=== PATIENT | male | born 1955 | race Caucasian/White ===

== ENCOUNTER 2016-12-14 14:37 | Emergency (ER) | payer OTHER ==
[2016-12-14 14:57] VITALS: BP 134/63; PULSE 80; RESP 18; TEMP 98.4; O2SAT 87
--- NOTE | 2016-12-14 15:26 | EDPHY ---
H & P Stated Complaint: right sided back pain started sunday, denies injury/TRAUMA OR URINARY C/O Time Seen by Provider: 12/14/16 15:00 HPI/ROS: Chief Complaint: right lower back pain HPI: 61-year-old male with a history of chronic back pain and degenerative disc disease turned to the left in the kitchen 4 days ago and had onset of pain in his right lower back. It is worse with movement, and pains with rest. He has no new numbness or weakness. No new urinary changes. Has a history of chronic back pain for she sees pain management of this over the periodically given steroid injections which will give him relief for 2-3 days. He does take Percocet, usually once a day. He got this filled yesterday but they have not improving. Has not been taking any other new medications. Is no fevers or chills. He is ambulating with discomfort but is able to ambulate. At rest his pain is a 3/10. With walking his pain 9/10. ROS: 10 point Review of Systems is negative except as noted in the HPI. PMH: Diabetes, sleep apnea, depression, chronic back pain Social History: No smoking, no alcohol, no recreational drug use Family History: non-contributory Physical Exam: Gen: Awake, Alert, No Distress, morbidly obese HEENT: Nose: no rhinorrhea Eyes: PERRLA, EOMI Mouth: Moist mucosa Neck: Supple, no JVD Chest: nontender, lungs clear to auscultation Heart: S1, S2 normal, no murmur Abd: Soft, non-tender, no guarding Back: no CVA tenderness, no midline tenderness he has right sided paraspinal palpable muscle spasm with tenderness Ext: no edema, non-tender Skin: no rash Neuro: CN II-XII intact, Sensation grossly intact, Strength 5/5 in bilateral upper and lower extremities, he has 2+ patellar reflexes, sensations intact in all dermatomes - Medical/Surgical History Hx Asthma: No Hx Chronic Respiratory Disease: No Hx Diabetes: Yes Hx Cardiac Disease: No Hx Renal Disease: No Hx Cirrhosis: No Hx Alcoholism: No Hx HIV/AIDS: No Hx Splenectomy or Spleen Trauma: No Other PMH: DIABETES,DEPRESSION,HIGH CHOLESTEROL, CHRONIC PAIN PAIN, SPINAL STENOSIS, SCULIOSIS, HERNIATED DISCS, SLEEP APNEA, KNEE SURG, ARTHRITIS. OXYGEN AT NIGHT 2 LTRS - Social History Smoking Status: Never smoked Constitutional: Initial Vital Signs Temperature (C) 36.9 C 12/14/16 14:52 Heart Rate 80 12/14/16 14:52 Respiratory Rate 18 12/14/16 14:52 Blood Pressure 134/63 H 12/14/16 14:52 O2 Sat (%) 87 L 12/14/16 14:52 O2 Delivery Mode Room Air Allergies/Adverse Reactions: No Known Allergies Allergy (Unverified 12/14/16 14:52) Home Medications: Medication Instructions Recorded Hyoscyamine Sulfate 08/10/09 Nardil 08/10/09 Melba Allergy 01/05/14 Donepezil HCl 01/05/14 Fish Oil 01/05/14 LIBRIUM 01/05/14 Methocarbamol [Robaxin 750 mg (RX)] 1 - 2 tab PO QID PRN #40 tab 01/05/14 Oracea 01/05/14 Phenelzine Sulfate 01/05/14 Pioglitazone HCl 01/05/14 Simvastatin 01/05/14 Vitamin C 01/05/14 Medical Decision Making ED Course/Re-evaluation: 5-year-old male with muscle spasm on top of chronic back pain. He has no neurologic red flags suggestive of acute neurosurgical emergency such as cauda equina syndrome or epidural abscess. He is neurologically intact. I have recommended that he increase his usual Percocet does p.o. to continue his Celebrex. I have also will apply a Lidoderm patch. He will follow up with primary care physician in 2-3 days to assess his pain. He has also been advised to follow up with pain management doctors at [facility]. Departure - Departure Disposition: Home, Routine, Self-Care Clinical Impression: Back pain Condition: Good Instructions: Lower Back Exercises (ED), Low Back Strain (ED), Chronic Back Pain (ED) Additional Instructions: You may increase her Percocet to 2 tablets twice a day as needed for pain. Apply a Lidoderm patch once a day to the affected area. Follow up with primary care physician in 2-3 days for re-evaluation. Follow-up with pain management doctors in 3-4 days for re-evaluation. Referrals: Cordelia Locke MD [Primary Care Provider] - As per Instructions
[2016-12-14] MEDS ORDERED: PATCH REMOVAL 1 EA PATCH TD SCH (21:00)
[2016-12-15] MEDS ORDERED: LIDOCAINE 5% 1 EA PATCH TD SCH (09:00)
== END 2016-12-14 15:46 | disposition home or self-care (01) ==
LOC: CED 14:37
DX: M54.5 Low back pain (principal); E11.9 Type 2 diabetes mellitus without complications

== ENCOUNTER 2017-01-14 15:44 | Observation (INO) | payer OTHER ==
--- NOTE | 2017-01-14 16:16 | EDPHY ---
H & P Stated Complaint: Medical eval - altered mental status Time Seen by Provider: 01/14/17 15:49 HPI/ROS: This pt. presented to the emergency department with confusion, concerned that his was trying to hurt him, he walked here from their nearbye home. After conversation with police (contacted due to concern of potential domestic dispute ) and , the history is that pt's normally visits her family on Sundays and shortly after arriving at her mother's home, she received a call from this patient, her asking why she left, angry and was concerned that she had poisoned him. When she returned to check on him he was holding scissors and stretching or not to get any closer. She was startled and through the phone at the patient and he caught the phone. The patient then called his daughter and was apparently confused when speaking to the daughter as well claiming that his was trying to poison him. The patient then left the home and walked to our emergency department for evaluation. The patient's explains that the patient has a history of chronic back pain and reports the recent visit with his LEAD [employer]ON DEVELOPER at [facility] who started him on buprenorphine patch on Sunday. His reports that he started to feel confused during the week while this patch with increased fatigue. By they called the LEAD PYTHON DEVELOPER that prescribe the med, & she instructed him to stop using the patch. Today, his reports they could not find the patches. Given his confusion, his has the impression that he took too much medication. The patient does not think he did. The patient reports that he has chronic hypoxia that has been worked up without any answer for the cause of the hypoxia which he states is typically at 88% on room air or so. The patient initially did not want to check into the emergency department and police were called to evaluate the patient for potential ride home. Concerned about the level of his parent confusion he has checked into the emergency department. Per the patient's , he has had an episode of anger after steroid injection for his back pain in the past, but no paranoia or psychotic sx's with that episode. No other previous episodes of similar behavior and down to this level of apparent confusion. ROS: No high fevers or chills no other constitutional symptoms HEENT: No nasal congestion. No sore throat. No ear symptoms Pulmonary: He reports occasional dry cough this morning. He has not noticed any dyspnea. No wheezing. No pleuritic pain. Cardiovascular: No chest pain. No heart palpitations. No lightheadedness. The patient does complain of leg pain in the right calf more than left intermittently over recent weeks more so over the past week. Integumentary: No diaphoresis. No rash. GI: He reports loose stools about 6 episodes of diarrhea a day over the past few days. He states this is watery stool. He denies any abdominal pain. : No urinary symptoms Neuro: No headache. No focal numbness tingling weakness Psychiatric: New onset of paranoia today. Complete review of symptoms is otherwise negative. Source: Patient, Family, Police Exam Limitations: Clinical condition (This patient is confused. History Augmentin by patient's and please.) - Personal History Current Tetanus/Diphtheria Vaccine: Unsure Current Tetanus Diphtheria and Acellular Pertussis (TDAP): Unsure - Medical/Surgical History Hx Asthma: No Hx Chronic Respiratory Disease: No Hx Diabetes: Yes Hx Cardiac Disease: No Hx Renal Disease: No Hx Cirrhosis: No Hx Alcoholism: No Hx HIV/AIDS: No Hx Splenectomy or Spleen Trauma: No Other PMH: DIABETES,DEPRESSION,HIGH CHOLESTEROL, CHRONIC PAIN PAIN, SPINAL STENOSIS, SCULIOSIS, HERNIATED DISCS, SLEEP APNEA, KNEE SURG, ARTHRITIS. OXYGEN AT NIGHT 2 LTRS - Family History Significant Family History: No pertinent family hx - Social History Smoking Status: Never smoked Alcohol Use: None Drug Use: None - Physical Exam Exam: Physical exam: Vital signs are notable for hypoxia to 78-83% on room air corrects to the mid 90s on 2 L nasal cannula, mild tachycardia to 104 General: Patient is in no acute distress. HEENT: Is no external evidence of trauma on exam. Nose atraumatic. Ears: Clear bilaterally with no hemotympanum. Oropharynx: No dental trauma or malocclusion. No intraoral lacerations. Eyes: Pupils are equal and reactive to light. Extraocular motions are intact. Optic fundi: Clear with no papilledema or hemorrhage. Neck: Trachea is midline with no stridor. The patient has no midline neck tenderness and retains a full range of motion without increase in pain. Lungs: Rales at the left base. Otherwise clear to auscultation. Cardiac: Regular rate and rhythm no murmur gallop or rub. Abdomen: Soft nontender no organomegaly Neuro: GCS of 14--1 for confusion Cranial nerves II through XII intact. No focal sensory or motor deficits are appreciated. Initial differential diagnosis: Pneumonia, PE other pneumonic cause of hypoxia contributing to confusion, drug related delirium from medications, overdose, intoxication, subdural hematoma or other intracranial pathology, mi, primary psychiatric, metabolic disarray Constitutional: Initial Vital Signs Temperature (C) 36.9 C 01/14/17 15:55 Heart Rate 104 H 01/14/17 15:55 Respiratory Rate 18 01/14/17 15:55 Blood Pressure 168/68 H 01/14/17 15:55 O2 Sat (%) 83 L 01/14/17 15:55 O2 Delivery Mode Room Air O2 (L/minute) 3 Allergies/Adverse Reactions: No Known Allergies Allergy (Unverified 12/14/16 14:52) Home Medications: Medication Instructions Recorded Hyoscyamine Sulfate 08/10/09 Nardil 08/10/09 Melba Allergy 01/05/14 Donepezil HCl 01/05/14 Fish Oil 01/05/14 LIBRIUM 01/05/14 Methocarbamol [Robaxin 750 mg (RX)] 1 - 2 tab PO QID PRN #40 tab 01/05/14 Oracea 01/05/14 Phenelzine Sulfate 01/05/14 Pioglitazone HCl 01/05/14 Simvastatin 01/05/14 Vitamin C 01/05/14 Medical Decision Making - Diagnostics EKG Interpretation: 12 lead EKG performed at 4:10 p.m.-indication confusion evaluate for dysrhythmia , conduction abnormalities or other Sinus rhythm at 92 Intervals: P R of 164, QTC of 406, QTC of 328, QRS of 84 [place]: P of 80, QRS of 8, T of 25 ST segments: Patient has border line R-wave progression anteriorly and morphologies notable for S1, Q 3 T3-potential right heart strain. Overall assessment sinus rhythm with borderline R-wave progression anteriorly and potential prior infarct right heart strain inferiorly Imaging Results: Imaging Impressions Chest X-Ray 01/14/17 16:05 Impression: Favor bibasilar atelectasis and airways disease rather than pneumonia. Head CT 01/14/17 16:09 Impression: 1. Negative. No subdural hematoma or acute intracranial process. 2. Old lacunar infarction involving the right external capsule. No evidence of acute ischemia. Findings discussed with emergency department physician, Chadd Graves MD on January 14, 2017 at 1721 hours. Chest/Thorax CTA 01/14/17 17:40 Impression: 1. No evidence of thrombopulmonary embolic disease. 2. Bibasilar linear atelectasis. No edema or consolidation to suggest pneumonia. 3. Fatty replaced pancreas. Query pancreatic insufficiency. Findings discussed with emergency department physician, Chadd Graves MD on January 14, 2017 at 1848 hours. Imaging: Discussed imaging studies w/ yardage caller Radiologist ED Course/Re-evaluation: I spoke with the patient's the bereavement room regarding the recent history and then brought her into the patient's room where the patient gained some insight into his current illness and expressed remorse for his earlier behavior (paranoia around his ). He initially declined CT scan was angry that I wanted to proceed with workup prior to his 's arrival. However, after conversation with his he understands the need to pursue the cause of his mental status changes or characterized by mildly agitated delirium. Given that he is on in MAOI inhibitor, started buprenorphine recently as well as long-acting benzodiazepine, I suspect this is a combination these medications that may be causing some depression of his respiratory drive, subsequent hypoxia and confusion. Review of his labs reveals elevated D-dimer. No other remarkable findings on CBC and CMP. Troponin is normal. The patient had mentions some leg pain recently. Given hypoxia, tachycardia, back pain positive D-dimer, patient warrants CT angio chest to evaluate for potential PE. I explained this to the patient he is agreeable to proceeding. Patient's CT angio chest is negative for PE showing only atelectasis at the bases noted on chest x-ray. I spoke with Dr. Nuno Rick-radiologist regarding this result. Patient with hypoxia and confusion that is likely secondary to medication effects of a combination of his opiate patch and benzodiazepine. He has been on Librium twice a day for many years to treat anxiety per his . Given has ongoing confusion hypoxia she warrants admission for further observation and treatment. Patient is agreeable to this with his present. Will plan to admit to [facility] The patient is cooperative, and pleasant since shortly after his arrived. Explain all the test results and plan for admission. He is comfortable with this plan. Will transport by S provide supplemental O2 and monitoring enroute. I spoke with Dr. Estrada, hospitalist at [facility] accepts the patient for admission to a medical bed with O2 sat monitoring - Data Points Laboratory Results: Laboratory Results 01/14/17 16:05 01/14/17 16:05 01/14/17 01/14/17 01/14/17 17:43 17:43 16:10 WBC RBC Hgb Hct MCV MCH MCHC RDW Plt Count MPV Neut % (Auto) Lymph % (Auto) [place] % (Auto) Eos % (Auto) Baso % (Auto) Nucleat RBC Rel Count Absolute Neuts (auto) Absolute Lymphs (auto) Absolute Monos (auto) Absolute Eos (auto) Absolute Basos (auto) Absolute Nucleated RBC Immature Gran % Immature Gran # PT INR APTT D-Dimer Sodium Potassium Chloride Carbon Dioxide Anion Gap BUN Creatinine Estimated GFR Glucose POC Glucose 129 mg/dL H mg/dL (70-100) Calcium Total Bilirubin AST ALT Alkaline Phosphatase Troponin I Total Protein Albumin TSH Urine Color YELLOW Urine Appearance CLEAR Urine pH 7.0 (5.0-7.5) Ur Specific [place] 1.010 (1.002-1.030) Urine Protein NEGATIVE (NEGATIVE) Urine Ketones NEGATIVE (NEGATIVE) Urine Blood NEGATIVE (NEGATIVE) Urine Nitrate NEGATIVE (NEGATIVE) Urine Bilirubin NEGATIVE (NEGATIVE) Urine Urobilinogen 0.2 EU EU (0.2-1.0) Ur Leukocyte Esterase NEGATIVE (NEGATIVE) Urine Glucose NEGATIVE (NEGATIVE) Urine Opiates Screen NEGATIVE (NEGATIVE) Urine Barbiturates NEGATIVE (NEGATIVE) Ur Phencyclidine Scrn NEGATIVE (NEGATIVE) Ur Amphetamine Screen NEGATIVE (NEGATIVE) U Benzodiazepines Scrn NON-NEGATIVE H (NEGATIVE) Urine Cocaine Screen NEGATIVE (NEGATIVE) U Marijuana (THC) Screen NEGATIVE (NEGATIVE) Ethyl Alcohol 01/14/17 01/14/17 01/14/17 16:05 16:05 16:05 WBC RBC Hgb Hct MCV MCH MCHC RDW Plt Count MPV Neut % (Auto) Lymph % (Auto) [place] % (Auto) Eos % (Auto) Baso % (Auto) Nucleat RBC Rel Count Absolute Neuts (auto) Absolute Lymphs (auto) Absolute Monos (auto) Absolute Eos (auto) Absolute Basos (auto) Absolute Nucleated RBC Immature Gran % Immature Gran # PT 14.1 SEC SEC (12.0-15.0) INR 1.12 (0.83-1.16) APTT 33.3 SEC SEC (23.0-38.0) D-Dimer 0.76 ug/mLFEU H ug/mLFEU (0.00-0.50) Sodium 142 mEq/L mEq/L (134-144) Potassium 5.2 mEq/L mEq/L (3.5-5.2) Chloride 103 mEq/L mEq/L (97-110) Carbon Dioxide 27 mEq/l mEq/l (22-31) Anion Gap 12 mEq/L mEq/L (8-16) BUN 25 mg/dL H mg/dL (7-23) Creatinine 0.6 mg/dL L mg/dL (0.7-1.3) Estimated GFR > 60 Glucose 126 mg/dL H mg/dL (70-100) POC Glucose Calcium 9.3 mg/dL mg/dL (8.5-10.4) Total Bilirubin 0.7 mg/dL mg/dL (0.1-1.4) AST 23 IU/L IU/L (17-59) ALT 31 IU/L IU/L (21-72) Alkaline Phosphatase 97 IU/L IU/L (38-126) Troponin I < 0.012 ng/mL ng/mL (0.000-0.034) Total Protein 6.1 g/dL L g/dL (6.3-8.2) Albumin 3.6 g/dL g/dL (3.5-5.0) TSH 1.300 uIU/mL uIU/mL (0.465-4.680) Urine Color Urine Appearance Urine pH Ur Specific [place] Urine Protein Urine Ketones Urine Blood Urine Nitrate Urine Bilirubin Urine Urobilinogen Ur Leukocyte Esterase Urine Glucose Urine Opiates Screen Urine Barbiturates Ur Phencyclidine Scrn Ur Amphetamine Screen U Benzodiazepines Scrn Urine Cocaine Screen U Marijuana (THC) Screen Ethyl Alcohol < 10 mg/dL mg/dL (0-10) 01/14/17 16:05 WBC 6.26 10^3/uL 10^3/uL (3.80-9.50) RBC 4.23 10^6/uL L 10^6/uL (4.40-6.38) Hgb 12.6 g/dL L g/dL (13.7-17.5) Hct 40.6 % % (40.0-51.0) MCV 96.0 fL fL (81.5-99.8) MCH 29.8 pg pg (27.9-34.1) MCHC 31.0 g/dL L g/dL (32.4-36.7) RDW 14.5 % % (11.5-15.2) Plt Count 155 10^3/uL 10^3/uL (150-400) MPV 10.0 fL fL (8.7-11.7) Neut % (Auto) 70.0 % % (39.3-74.2) Lymph % (Auto) 16.1 % % (15.0-45.0) [place] % (Auto) 7.0 % % (4.5-13.0) Eos % (Auto) 5.9 % % (0.6-7.6) Baso % (Auto) 0.5 % % (0.3-1.7) Nucleat RBC Rel Count 0.0 % % (0.0-0.2) Absolute Neuts (auto) 4.38 10^3/uL 10^3/uL (1.70-6.50) Absolute Lymphs (auto) 1.01 10^3/uL 10^3/uL (1.00-3.00) Absolute Monos (auto) 0.44 10^3/uL 10^3/uL (0.30-0.80) Absolute Eos (auto) 0.37 10^3/uL 10^3/uL (0.03-0.40) Absolute Basos (auto) 0.03 10^3/uL 10^3/uL (0.02-0.10) Absolute Nucleated RBC 0.00 10^3/uL 10^3/uL (0-0.01) Immature Gran % 0.5 % % (0.0-1.1) Immature Gran # 0.03 10^3/uL 10^3/uL (0.00-0.10) PT INR APTT D-Dimer Sodium Potassium Chloride Carbon Dioxide Anion Gap BUN Creatinine Estimated GFR Glucose POC Glucose Calcium Total Bilirubin AST ALT Alkaline Phosphatase Troponin I Total Protein Albumin TSH Urine Color Urine Appearance Urine pH Ur Specific [place] Urine Protein Urine Ketones Urine Blood Urine Nitrate Urine Bilirubin Urine Urobilinogen Ur Leukocyte Esterase Urine Glucose Urine Opiates Screen Urine Barbiturates Ur Phencyclidine Scrn Ur Amphetamine Screen U Benzodiazepines Scrn Urine Cocaine Screen U Marijuana (THC) Screen Ethyl Alcohol Medications Given: Discontinued Medications Sodium Chloride (Ns) 1,000 mls @ 0 mls/hr IV EDNOW ONE; Wide Open PRN Reason: Protocol Stop: 01/14/17 16:52 Last Admin: 01/14/17 17:11 Dose: 1,000 mls Point of Care Test Results: 01/14/17 16:10 POC Glucose 129 H Departure - Departure Disposition: [facility] Inpatient Acute Clinical Impression: Delirium due to known physiological condition, Hypoxia Condition: Fair
[2017-01-14 16:25] LABS: % IMMATURE GRANULYOCYTES 0.5 % (0.0-1.1); ABSOLUTE IMMATURE GRANULOCYTES 0.03 10^3/uL (0.00-0.10); ADD DIFF? NO; ADD MORPH? NO; ADD SCAN? NO; ATYPICAL LYMPHOCYTE FLAG 0 (0-99); FRAGMENT RBC FLAG 0 (0-99); HEMATOCRIT 40.6 % (40.0-51.0); HEMOGLOBIN 12.6 g/dL (13.7-17.5); LEFT SHIFT FLG 0 (0-99); LIPEMIA HEMOLYSIS FLAG 80 (0-99); MEAN CELL HEMOGLOBIN 29.8 pg (27.9-34.1); PLATELET CLUMPS FLAG 10 (0-99); PLATELET COUNT 155 10^3/uL (150-400); RED BLOOD CELL COUNT 4.23 10^6/uL (4.40-6.38); RED CELL DISTRIBUTION WIDTH 14.5 % (11.5-15.2)
[2017-01-14 16:40] LABS: ALANINE AMINOTRANSFERASE 31 IU/L (21-72); ALBUMIN 3.6 g/dL (3.5-5.0); ALKALINE PHOSPHATASE 97 IU/L (38-126); ANION GAP 12 mEq/L (8-16); ASPARTATE AMINOTRANSFERASE 23 IU/L (17-59); BILIRUBIN,TOTAL 0.7 mg/dL (0.1-1.4); CALCIUM 9.3 mg/dL (8.5-10.4); CARBON DIOXIDE 27 mEq/l (22-31); CHLORIDE 103 mEq/L (97-110); CREATININE 0.6 mg/dL (0.7-1.3); GLOMERULAR FILTRATION RATE > 60; GLUCOSE 126 mg/dL (70-100); POTASSIUM 5.2 mEq/L (3.5-5.2); SODIUM 142 mEq/L (134-144); TOTAL PROTEIN 6.1 g/dL (6.3-8.2)
[2017-01-14] MEDS ORDERED: NS 1,000 ML IV ONE (16:51)
[2017-01-14 16:54] LABS: TROPONIN I < 0.012 ng/mL (0.000-0.034)
[2017-01-14 17:39] LABS: ETHANOL SERUM < 10 mg/dL (0-10)
--- NOTE | 2017-01-14 17:49 | CPEKG ---
Heart Rate: 92 RR Interval: 652 P-R Interval: 164 QRSD Interval: 84 QT Interval: 328 QTC Interval: 406 P Gate: 18 QRS Gate: 8 T Wave Gate: 25 EKG Severity - ABNORMAL ECG - EKG Impression: SINUS RHYTHM EKG Impression: PROBABLE INFERIOR INFARCT, AGE INDETERMINATE EKG Impression: BORDERLINE R WAVE PROGRESSION, ANTERIOR LEADS Electronically Signed By: Chadd Graves 14-Jan-2017 18:32:55
[2017-01-14 17:54] LABS: INR 1.12 (0.83-1.16); PROTIME(PATIENT) 14.1 SEC (12.0-15.0)
[2017-01-14 17:55] LABS: APTT 33.3 SEC (23.0-38.0)
[2017-01-14] MEDS ORDERED: IOPAMIDOL (ISOVUE 370) 100 ML BTL IV ONE (18:01)
[2017-01-14 18:31] LABS: COLOR YELLOW; LEUKOCYTE ESTERASE,URINE NEGATIVE (NEGATIVE); NITRITE,URINE NEGATIVE (NEGATIVE)
[2017-01-14] MEDS ORDERED: ONDANSETRON DISINTEGRATING 4 MG TAB PO PRN (23:01)
[2017-01-14] MEDS ORDERED: HALOPERIDOL 2 MG TAB PO PRN (23:01)
[2017-01-14] MEDS ORDERED: ONDANSETRON 4 MG/2 ML VIAL IVP PRN (23:01)
[2017-01-14] MEDS ORDERED: ACETAMINOPHEN 325 MG TAB PO PRN (23:01)
[2017-01-14] MEDS ORDERED: HALOPERIDOL LACT 5 MG/ML INJ IM PRN (23:01)
[2017-01-14] MEDS ORDERED: LIDOCAINE 5% 1 EA PATCH TD PRN (23:08)
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
[2017-01-15] MEDS ORDERED: D50W 25 GM/50 ML SYR IVP PRN (00:05)
[2017-01-15 05:18] LABS: CHOLESTEROL 122 mg/dL (140-220); CHOLESTEROL/HDL RATIO 4.07 RATIO (1.00-4.97); HIGH DENSITY LIPOPROTEIN 30 mg/dL (40-65); LOW DENSITY LIPOPROTEIN 78 mg/dL (80-100); NON-HIGH DENSITY LIPOPROTEIN 92 mg/dL (90-129); TRIGLYCERIDE 74 mg/dL (40-150); VERY LOW DENSITY LIPOPROTEINS 14 mg/dL (8-25)
[2017-01-15 06:24] LABS: FOLATE SERUM > 20.00 ng/mL (2.80 - >20.00)
[2017-01-15] MEDS: INSULIN LISPRO 100 UNIT/ML SC SCH ×3 (08:28→18:26)
[2017-01-15] MEDS: ASPIRIN 81 MG CHEWABLE TAB PO SCH (08:34)
--- NOTE | 2017-01-15 09:28 | HOSPPROG ---
Hospitalist Progress Note Assessment/Plan: #Acute toxic encephalopathy: sxs stated with initiation of buperenorphine patch 5mg in combo with Nardil, Perocet and Librium. No metabolic derangements. Eval for infection. UA neg. CTA neg for clot, PNA. Check ABG for hypercarbia, flu with new cough - #Chronic back pain: followed by Ophelia Rajan PSYCHIATRIC TECHNICIAN ASSISTANT at [facility] #JENNIE: Bi-pap at home; to bring in #Acute on chronic hypoxemic resp failure: no clot or PNA. Atelectasis. Check flu. Incentive spirometry DM: cont home meds #Depression/anxiety: has been on Nardil for many years. Will restart this medication, hold Librium to allow him to mental status to clear. This will be need to be restarted since chronic. Have started CIWa/ativan in case of withdrawal. #Chronic back pain: hold Percocet. IV Toradol while here. On H2-sergo #Diet: regular DVT ppx: Lovenox Disp: will continue observation status since allowing meds and mental status to clear Time spent on visit: 45 min bedside with pt, counseling on tx plan, reviewing meds Subjective: doesn't understand why he is here in hosp Objective: Vital Signs Temp Pulse Resp BP Pulse Ox 36.9 C 75 16 135/68 H 93 01/15/17 08:00 01/15/17 08:00 01/15/17 08:00 01/15/17 08:00 01/15/17 08:00 01/14/17 01/15/17 01/16/17 05:59 05:59 05:59 Intake Total 1010 Balance 1010 PT 14.1 SEC (12.0-15.0) 01/14/17 16:05 INR 1.12 (0.83-1.16) 01/14/17 16:05 - Physical Exam Constitutional: obese Ears, Nose, Mouth, Throat: moist mucous membranes Cardiovascular: regular rate and rhythym (distant) Respiratory: no respiratory distress, no rales or rhonchi Gastrointestinal: normoactive bowel sounds, soft, non-tender abdomen Genitourinary: no bladder fullness Skin: warm Musculoskeletal: full muscle strength Neurologic: CN II-XII Intact, other (alert to year and hospital only) Psychiatric: encephalopathic, anxious, flat affect ICD10 Worksheet Patient Problems: Problems Problem Status Onset Delirium due to known physiological condition Acute Hypoxia Acute
[2017-01-15 09:47] LABS: BASE EXCESS 0.7 mEq/L (-2.5-2.5); BICARBONATE 26 mEq/L (22-26); MEASURED OXYGEN SATURATION 92 % (92-95); PCO2 49 mmHg (34-38); PO2 65 mmHg (65-75); TCO2 28 mEq/L (23-27)
[2017-01-15] MEDS ORDERED: NON-FORMULARY NEW DRUG (Doxycycline Monohydrate [Oracea] 40 MG) PO SCH (11:30)
[2017-01-15] MEDS ORDERED: [UNRECOGNIZED DRUG - OTHER] PO SCH (11:30)
[2017-01-15] MEDS ORDERED: LORazepam 1 MG TAB PO PRN (14:00)
[2017-01-15] MEDS: KETOROLAC 15 MG/1 ML SDV IVP SCH ×3 (15:05→23:49)
[2017-01-15] MEDS: ASCORBIC ACID 500 MG TAB PO SCH (15:05)
[2017-01-15] MEDS: FAMOTIDINE 20 MG TAB PO SCH (15:05)
[2017-01-15] MEDS: OMEGA-3 FATTY ACIDS 1,000 MG CAP PO SCH (15:05)
--- NOTE | 2017-01-15 16:23 | ASMTCMCOM ---
CM Note CM Note Notes: Pt is a 61 y/o man admitted with confusion and agitation. Pt has a hx of chronic back pain, diabetets, depression and sleep apnea. Therapies ordered and awaiting recommendations. CM to follow. Date Signed: 01/15/2017 04:22 PM Electronically Signed By:NEO Schaefer
[2017-01-15] MEDS ORDERED: PHENELZINE SULFATE PO SCH ×5 (18:00→21:00)
[2017-01-15] MEDS ORDERED: NON-FORMULARY NEW DRUG (Simvastatin [Simvastatin] 40 MG) PO SCH (21:00)
[2017-01-15] MEDS ORDERED: PHENELZINE 15 MG PO SCH (21:00)
[2017-01-15] MEDS ORDERED: ATORVASTATIN CALCIUM 20 MG TAB PO SCH (21:00)
[2017-01-15] MEDS ORDERED: PATCH REMOVAL 1 EA PATCH TD SCH (21:00)
[2017-01-16 04:49] LABS: % IMMATURE GRANULYOCYTES 0.3 % (0.0-1.1); ABSOLUTE IMMATURE GRANULOCYTES 0.02 10^3/uL (0.00-0.10); ADD DIFF? NO; ADD MORPH? NO; ADD SCAN? NO; ATYPICAL LYMPHOCYTE FLAG 10 (0-99); FRAGMENT RBC FLAG 0 (0-99); HEMOGLOBIN 12.2 g/dL (13.7-17.5); LEFT SHIFT FLG 0 (0-99); LIPEMIA HEMOLYSIS FLAG 80 (0-99); MEAN CELL HEMOGLOBIN 29.5 pg (27.9-34.1); MEAN CELL HEMOGLOBIN CONCENTR. 31.3 g/dL (32.4-36.7); MEAN CELL VOLUME 94.4 fL (81.5-99.8); PLATELET CLUMPS FLAG 0 (0-99); PLATELET COUNT 133 10^3/uL (150-400); RED BLOOD CELL COUNT 4.13 10^6/uL (4.40-6.38); RED CELL DISTRIBUTION WIDTH 14.1 % (11.5-15.2)
[2017-01-16 04:58] LABS: ANION GAP 9 mEq/L (8-16); CALCIUM 9.5 mg/dL (8.5-10.4); CARBON DIOXIDE 25 mEq/l (22-31); CHLORIDE 106 mEq/L (97-110); CREATININE 0.7 mg/dL (0.7-1.3); GLOMERULAR FILTRATION RATE > 60; GLUCOSE 98 mg/dL (70-100); MAGNESIUM 1.8 mg/dL (1.6-2.3); POTASSIUM 4.4 mEq/L (3.5-5.2); SODIUM 140 mEq/L (134-144)
[2017-01-16] MEDS: KETOROLAC 15 MG/1 ML SDV IVP SCH ×2 (05:31→12:25)
[2017-01-16] MEDS: INSULIN LISPRO 100 UNIT/ML SC SCH ×2 (08:20→15:18)
[2017-01-16] MEDS: ASCORBIC ACID 500 MG TAB PO SCH (08:24)
[2017-01-16] MEDS: FAMOTIDINE 20 MG TAB PO SCH (08:25)
[2017-01-16] MEDS: OMEGA-3 FATTY ACIDS 1,000 MG CAP PO SCH (08:25)
[2017-01-16] MEDS: ASPIRIN 81 MG CHEWABLE TAB PO SCH (08:25)
[2017-01-16] MEDS ORDERED: PIOGLITAZONE HCL 15 MG TAB PO SCH (09:00)
[2017-01-16] MEDS ORDERED: [UNRECOGNIZED DRUG - OTHER] PO SCH (09:00)
[2017-01-16] MEDS ORDERED: NON-FORMULARY NEW DRUG (Pioglitazone Hcl [Actos] 45 MG) PO SCH (09:00)
[2017-01-16] MEDS ORDERED: PHENELZINE SULFATE 15 MG PO SCH ×4 (09:00)
[2017-01-16] MEDS ORDERED: HYOSCYAMINE SULFATE 0.375 MG TAB.SR PO SCH (09:00)
[2017-01-16] MEDS ORDERED: DOXYCYCLINE MONOHYDRATE 40 MG PO SCH (09:00)
--- NOTE | 2017-01-16 14:04 | HOSPPROG ---
Hospitalist Progress Note Assessment/Plan: #Acute toxic encephalopathy: sxs stated with initiation of buperenorphine patch 5mg in combo with Nardil, Perocet and Librium. No metabolic derangements. Eval for infection. UA neg. CTA neg for clot, PNA. abg normal PT eval today home if cleared #Chronic back pain: followed by Ophelia Rajan REGISTERED NURSE FIRST ASSISTANT at [facility] #JENNIE: Bi-pap at home; to bring in #Acute on chronic hypoxemic resp failure: no clot or PNA. Atelectasis. Check flu. Incentive spirometry DM: cont home meds #Depression/anxiety: has been on Nardil for many years. Will restart this medication, hold Librium to allow him to mental status to clear. This will be need to be restarted since chronic. Have started CIWa/ativan in case of withdrawal. #Chronic back pain: hold Percocet. IV Toradol while here. On H2-sergo #Diet: regular DVT ppx: Lovenox Disp: will continue observation status since allowing meds and mental status to clear Subjective: more clear today, approaching baseline. discussed w pt and family Objective: Vital Signs Temp Pulse Resp BP Pulse Ox 36.7 C 75 18 140/71 H 71 L 01/16/17 12:36 01/16/17 12:36 01/16/17 12:36 01/16/17 12:36 01/16/17 12:36 Laboratory Results 01/16/17 04:20 01/16/17 04:20 01/15/17 01/16/17 01/17/17 05:59 05:59 05:59 Intake Total 1010 120 Balance 1010 120 PT 14.1 SEC (12.0-15.0) 01/14/17 16:05 INR 1.12 (0.83-1.16) 01/14/17 16:05 - Physical Exam Constitutional: no apparent distress, appears nourished Eyes: PERRL, anicteric sclera Ears, Nose, Mouth, Throat: moist mucous membranes, hearing normal Cardiovascular: regular rate and rhythym, no murmur, rub, or gallop Respiratory: no respiratory distress Gastrointestinal: normoactive bowel sounds, soft, non-tender abdomen Genitourinary: no bladder fullness, No hernandez in urethra Skin: warm, normal color Musculoskeletal: full muscle strength Neurologic: AAOx3 ICD10 Worksheet Patient Problems: Problems Problem Status Onset Delirium due to known physiological condition Acute Hypoxia Acute
--- NOTE | 2017-01-16 15:11 | ASMTCMCOM ---
CM Note CM Note Notes: Pt is being discharged home w/ supportive today. Pt has been cleared by PT to be independent. will be taking the next 8 days off from work to care for pt. Pt will be using O2 during the day. CM available for changes. Date Signed: 01/16/2017 03:11 PM Electronically Signed By:NEO Schaefer
[2017-01-16 15:47] VITALS: BP 121/63; PULSE 72; RESP 22; TEMP 97.9; O2SAT 96
[2017-01-16] MEDS ORDERED: PHENELZINE 15 MG PO SCH (18:00)
[2017-01-16] MEDS ORDERED: PHENELZINE SULFATE PO SCH (18:00)
--- NOTE | 2017-01-16 22:51 | GDS ---
[f rep st] DISCHARGE SUMMARY DISCHARGE DIAGNOSES: 1. Acute encephalopathy secondary to buprenorphine prescription which is new and subsequently discon tinued. 2. History of sleep apnea. 3. Hypoxemia secondary to sleep apnea and poor respiratory mechanics. 4. Diabetes. 5. Low back pain. 6. Anxiety. HOSPITAL COURSE: Please see admission History and Physical by Dr. Cassandra Martínez. The patient presen ora on the afternoon and evening of the with agitation and encephalopathy in the context of rece ntly having started buprenorphine. It sounds like he was having some intolerance to that prior too. They removed it, but since it was a transdermal medication, the symptoms continued to escalate. The patient had improved status over a couple of days, and today when I saw him for my first time, the f ghislainey thought he was pretty near his baseline. He was seen by PT, who felt he was safe for discharge . He was discharged home. Medicines are unchanged, except for discontinued buprenorphine. /[id number]/MODL
[2017-01-18] MEDS ORDERED: THIAMINE HCL 100 MG TAB PO SCH (09:00)
== END 2017-01-16 16:24 | disposition home or self-care (01) ==
LOC: CED 15:44 → CEDHOLD 19:03 → INTOOBSV 19:03 → F3E 21:21
PROVIDERS: ADMIT Internal Medicine; ATTEND Internal Medicine
DX: G92 Toxic encephalopathy (principal); T40.4X5A Adverse effect of other synthetic narcotics, initial encounter; G47.36 Sleep related hypoventilation in conditions classified elsewhere; E11.9 Type 2 diabetes mellitus without complications; M54.5 Low back pain; F41.9 Anxiety disorder, unspecified
CPT/HCPCS: 70450; 71020; 71275; 92507; 92523; 93005; 96360; 97161; 97166; 99285; G0378; 80053-PO; 80307-PO; 81003-PO; 82607-90; 82947-QW; 84443-PO; 84484-PO; 85025-PO; 85378-PO; 85610-PO; 85730-PO; G0480; J1815; J1885; Q9967

== ENCOUNTER 2017-08-21 09:22 | Emergency (ER) | payer OTHER ==
--- NOTE | 2017-08-21 09:44 | EDPHY ---
HPI/HX/ROS/PE/MDM Narrative: CHIEF COMPLAINT: Frequent urination, abdominal pain HPI: The patient is a 61-year-old male with a history of chronic low back pain and chronic constipation. He presents to the emergency department with a complaint of approximately 5 days of increasing frequency of urination and worsening suprapubic abdominal pain. The patient states that he has had these symptoms before but they are worse now. He denies fever, vomiting or pain with urination. He has been having alternating bouts of constipation and diarrhea. Of note, on initial history, the patient began talking to me extensively about the fact that he was recently discharged from his pain clinic and did not ever mention his actual chief complaint. Finally, his interrupted him and explained why he was here. Patient confirms that his main issue is frequency of urination and he denies any other specific acute complaints. REVIEW OF SYSTEMS: Aside from elements discussed in the HPI, a comprehensive 10-point review of systems was reviewed and is negative. PMH: Includes chronic low back pain, hypoxia. SOCIAL HISTORY: , denies alcohol or drug abuse. PHYSICAL EXAM: General:Patient is alert, in no acute distress. Her resting tremors noted. ENT:Eyes are normal to inspection. ENT inspection normal. Neck: Normal inspection. Full range of motion. Respiratory:No respiratory distress. Breath sounds normal bilaterally. Cardiovascular: Regular rate and rhythm. Strong peripheral pulses. Normal cap refill. Abdomen:The abdomen is nontender to palpation. There are no peritoneal signs. There are normal bowel sounds. Back: Normal to inspection. No tenderness to palpation. Skin: Normal color. No rash. Warm and dry. Extremities: Normal appearance. Full range of motion. Neuro: Oriented x3. Normal motor function. Normal sensory function. MDM: Urinalysis is negative for signs of infection and there are no signs of glucose or ketones to suggest DKA. Abdominal x-ray is negative for signs of bowel obstruction and significant only for constipation. On re-evaluation, the patient feels unchanged but comfortable. His abdomen is benign. I had an extensive discussion with the patient and his . I explained that our studies were negative and offered to perform additional testing which would include blood work and likely a CT scan of the abdomen and pelvis to officially exclude bowel obstruction or other significant disease. The patient declines this however. We had a long discussion regarding his management of his constipation. Apparently, the patient's PCP had started him on a medication for chronic constipation which did not agree with him. He stopped this medication and has only been taking Colace. I suggested he try a regimen of a Fleet's enema followed by both stool softener and laxative. The patient likes this plan and already has plans in place to follow up with a paper sales representative. We discussed return precautions. At the end of interview, the patient again declines any further testing here in the emergency department. He understands I am unable to rule out significant pathology without further testing. I do think his exam and complaints are reassuring however. - Data Points Imaging Results: Imaging Impressions Abdomen X-Ray 08/21/17 09:41 Impression: Constipation with no acute findings. Laboratory Results: 08/21/17 10:26 Urine Color YELLOW Urine Appearance CLEAR Urine pH 7.0 (5.0-7.5) Ur Specific [place] 1.010 (1.002-1.030) Urine Protein NEGATIVE (NEGATIVE) Urine Ketones NEGATIVE (NEGATIVE) Urine Blood NEGATIVE (NEGATIVE) Urine Nitrate NEGATIVE (NEGATIVE) Urine Bilirubin NEGATIVE (NEGATIVE) Urine Urobilinogen 0.2 EU EU (0.2-1.0) Ur Leukocyte Esterase NEGATIVE (NEGATIVE) Urine Glucose NEGATIVE (NEGATIVE) General Time Seen by Provider: 08/21/17 09:30 Initial Vital Signs: Initial Vital Signs Temperature (C) 36.7 C 08/21/17 09:27 Heart Rate 75 08/21/17 09:27 Respiratory Rate 18 08/21/17 09:27 Blood Pressure 127/69 H 08/21/17 09:27 O2 Sat (%) 93 08/21/17 09:27 O2 Delivery Mode Room Air Allergies/Adverse Reactions: No Known Allergies Allergy (Verified 08/21/17 09:35) Home Medications: Medication Instructions Recorded Doxycycline Monohydrate [Oracea] 40 mg PO DAILY 01/15/17 [place]-3 Fatty Acids [Fish Oil 1000 1,000 mg PO DAILY 01/15/17 mg (*)] Phenelzine Sulfate [Nardil] 7.5 mg PO DAILY@18 01/15/17 Phenelzine Sulfate [Nardil] 15 mg PO DAILY 01/15/17 Phenelzine Sulfate [Nardil] 45 mg PO HS 01/15/17 Pioglitazone HCl [Actos] 45 mg PO DAILY 01/15/17 Simvastatin 40 mg PO HS 01/15/17 chlordiazePOXIDE [Librium 10 mg 10 mg PO BID 01/15/17 (RX)] oxyCODONE HCL/ACETAMINOPHEN 0.5 - 1 each PO Q6H PRN 01/15/17 [Percocet 10-325 mg Tablet] B Complex W-C No.20/Folic Acid 08/21/17 Indomethacin 08/21/17 Methocarbamol 08/21/17 Multivitamin (*) 08/21/17 Departure - Departure Disposition: Home, Routine, Self-Care Condition: Good Instructions: Constipation (ED) Additional Instructions: We recommend you use a Fleet's enema when you get home today, and start taking an [id number] laxative as directed. Follow-up with your GI specialist as planned. Return to the ED for fever, severe pain, vomiting or other concerns. Referrals: Cordelia Locke MD [Primary Care Provider] - As per Instructions
[2017-08-21 10:58] VITALS: BP 135/74
== END 2017-08-21 11:02 | disposition home or self-care (01) ==
LOC: CED 09:22
DX: K59.00 Constipation, unspecified (principal)
CPT/HCPCS: 74018-PO; 81003-PO